=== PATIENT | male | born 2000 | race African-American/Black ===

== ENCOUNTER 2020-04-04 05:16 | Inpatient (IN) | payer OTHER ==
[~2020-04-04] VITALS: Ht 165.1 cm; Wt 65.8 kg
[2020-04-04 06:56] LABS: HEMATOCRIT 45.4 % (42.0-52.0); HEMOGLOBIN 15.2 g/dl (13.5-17.5); MEAN CORPUSCULAR HEMOGLOBIN 29.5 pg (27.0-33.0); MEAN CORPUSCULAR HGB CONC 33.5 g/dl (32.0-36.5); MEAN CORPUSCULAR VOLUME 88.2 fl (80.0-96.0); PLATELET COUNT, AUTOMATED 218 10^3/uL (150-450); RED BLOOD COUNT 5.15 10^6/uL (4.30-6.10); WHITE BLOOD COUNT 7.4 10^3/uL (4.0-10.0)
[2020-04-04 07:19] LABS: AMPHETAMINES LEVEL URINE NEGATIVE (NEGATIVE); BARBITURATES URINE NEGATIVE (NEGATIVE); BENZODIAZEPINES URINE NEGATIVE (NEGATIVE); CANNABINOIDS URINE NEGATIVE (NEGATIVE); COCAINE METABOLITE URINE NEGATIVE (NEGATIVE); METHADONE URINE NEGATIVE (NEGATIVE); OPIATES URINE NEGATIVE (NEGATIVE); PHENCYCLIDINE URINE NEGATIVE (NEGATIVE)
[2020-04-04 07:32] LABS: ACETAMINOPHEN LEVEL < 2.0 UG/ML (10.0-30.0); ALBUMIN 3.9 GM/DL (3.2-5.2); ALT/SGPT 20 U/L (12-78); BILIRUBIN,DIRECT 0.1 MG/DL (0.0-0.2); BILIRUBIN,TOTAL 0.4 MG/DL (0.2-1.0); BLOOD UREA NITROGEN 18 MG/DL (7-18); CALCIUM LEVEL 8.9 MG/DL (8.5-10.1); CARBON DIOXIDE LEVEL 27 MEQ/L (21-32); CHLORIDE LEVEL 109 MEQ/L (98-107); CREATININE FOR GFR 1.29 MG/DL (0.70-1.30); GLOMERULAR FILTRATION RATE > 60.0 (>60); GLUCOSE, FASTING 82 MG/DL (70-100); POTASSIUM SERUM 4.3 MEQ/L (3.5-5.1); SALICYLATE LEVEL < 1.7 MG/DL (5.0-30.0); SODIUM LEVEL 143 MEQ/L (136-145); TOTAL PROTEIN 6.9 GM/DL (6.4-8.2)
[2020-04-04 07:33] LABS: ETHYL ALCOHOL (ETHANOL) < 0.003 % (0.000-0.010)
[2020-04-04] MEDS ORDERED: ACETAMINOPHEN TAB 650MG DOSE (2X325MG) PO PRN (09:00)
[2020-04-04] MEDS ORDERED: traZODone 50 MG TAB PO PRN (09:00)
[2020-04-04] MEDS ORDERED: LORazepam 1 MG TAB PO PRN (09:00)
[2020-04-04] MEDS ORDERED: MOM 30ML SUSPENSION UDC PO PRN (09:00)
[2020-04-04] MEDS ORDERED: MAALOX 30 ML SUSP *UDC PO PRN (09:00)
[2020-04-04 10:51] VITALS: BP 139/97
[2020-04-04 16:47] VITALS: BP 126/58
[2020-04-05 06:30] VITALS: BP 112/53
--- NOTE | 2020-04-05 09:42 | MHHPE ---
DATE OF ADMISSION: 04/04/2020 VITAL SIGNS: Blood pressure 106/68, pulse 66, temperature 98.7. This is a video assessment, it is being done because of the virus pandemic. He is aware of this. He seemed pleasant to staff. CHIEF COMPLAINT: He feels stressed. SUBJECTIVE: He is 20 years old, he is single, he is active duty, has a girlfriend called Jess, they have been together for about a year. He has no children. He was brought into the hospital yesterday after girlfriend got concerned regarding his ability to maintain his safety. He had received word from his mother that she was going to operated upon, heart surgery coming up. Said this was quite unexpected. He felt quit stressed when he got the news. Says his the night his girlfriend was in the room, she is aware, essentially somewhat violent and then overly distressed and he asked her to leave him alone for a little while, says he wants to gather himself. He says indicated that he "could not take it any more" and says this was in context in dealing with his brother, who is recovering from being shot several times, this is was all in [place], [place]. Brother is still in hospital. The patient had gone there in November, soon after the shooting, but because of the investigation and the virus and restrictions, was not allowed to see him. Says that an ongoing matter of the investigation going on, has been quite worried about all of those aspects, and in addition to that, when he found out about his mother and she told him about her upcoming surgery, felt distressed by it. Says he went to his room, which is near his girlfriend's room, they live in the [facility] and girlfriend was worried. He then returned to the room and wanted to collect his phone, but by then she had called the police, they came, they informed him that they were going to take him to the hospital. He says he told them that he did not think he needed to go, but they had to. Says meanwhile, his 1st sergeant, his first name is Giovanni, was also aware and persuaded him to go. He says he and his 1st sergeant are quite close to each other and they get along. Says he somewhat remembers the journey to the hospital, says he was quiet and did not say much and that was maintained while he was in the emergency room, said hardly anything, but was thinking about these matters and he felt he just needed time. Says he had no desires of harming himself and that remains the case. Says he feels better now particularly after he slept earlier today. Says he realizes he needs at this time to source out all these matters. Has been in touch with his girlfriend and his sergeant, says that has gone well. Has been in touch with his mother as well. Says he has generally been doing relatively well emotionally, though stressed over the last few weeks, but moods overall have been good, as has sleep and appetite. Says thinks about his brother, but that he has been preoccupied by those worries or thoughts. REVIEW OF PSYCHIATRIC SYSTEMS: There is no history consistent with hypomania, nor otilia, no obsessions, no compulsions, is not chronically anxious, had no symptoms indicative of posttraumatic stress disorder. PAST PSYCHIATRIC HISTORY: None formally. FAMILY PSYCHIATRIC HISTORY: None that he is aware of. SUBSTANCE ABUSE HISTORY: None significantly. MEDICAL HISTORY: None significantly. SOCIAL HISTORY: He is the youngest of several children and he says he had brought up by his mother, step dad, says he is close to his mother, gets along with his stepfather. Denies any history of abuse, but suggests that it was tough growing up. Joined the soon after school. Says likes it and been enlisted recently and says eventually he wants to go for further studies, works as a tile mechanic helper. Says he and his girlfriend, Jess, have been together for about a year and they get along. She is supportive. She is also in the . Says finds support with his 1st sergeant and that in fact he has recently promoted as well. MENTAL STATUS EXAMINATION: He is neat, he is cooperative. No involuntary movements noted. He appears well nourished. He is coherent. He has a fairly broad effect. Denies any suicidal thoughts or intents. No homicidal ideas or intents. No evidence of any psychosis. Intellect average. Cognition grossly intact. Judgment and insight fair. INVESTIGATIONS: Complete blood count essentially within normal limits. Metabolic profile: Within normal limits. Urine toxicology essentially negative. ASSESSMENT: 1. Acute stress disorder. 2. Concerns regarding mother's upcoming surgery. 3. Worries about brother. 4. Has been stressed, distressed receiving news about his other health. He says she has told him that the surgery is upcoming. Indicates it was unexpected, the news, and that distressed him further. Says he needed time to process this and to gather himself, he feels this was misinterpreted by his girlfriend and that mistaken implying that he wants to kill himself, but that he did not, has no such intentions. Feels better now. PLANS: Admitted to the inpatient psychiatric unit. The patient relevant precautions. We will look in obtaining collateral information. He will be involved in individual group and Milieu therapy. I do not see a need for his being on any scheduled psychotropics. He received a medicine consult as indicated. He will be discharged with followup once he is stable and I anticipate a short stay. Further recommendations will be made depending on clinical picture. Assessment took 50 minutes.
[2020-04-05 16:19] VITALS: BP 135/62
[2020-04-06 06:10] VITALS: BP 135/65
--- NOTE | 2020-04-06 06:45 | HPE ---
DATE OF ADMISSION: 04/04/2020 Please refer to the psychiatric history and evaluation for further details on this admission. This examination and history is intended for medical issues which may need treatment, followup or consultation on this 20-year-old male. PRIMARY CARE PROVIDER: [facility]. ALLERGIES: No known allergies. 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 ETOH - he states none. Smokes - none. Recreational drug use - none. PAST MEDICAL HISTORY: Negative. PAST SURGICAL HISTORY: Negative. HOME MEDICATIONS: None. FAMILY HISTORY: He has a brother who was recently shot several times and is in the hospital in [place]. He has a mother with heart disease who had recent heart surgery. Father's health is unknown, he when patient was a child. LABORATORY STUDIES: CBC was normal. Sodium 143. Potassium 4.3. Chloride 109. CO2 27. Anion gap 7. BUN 18. Creatinine 1.29. Fasting blood sugar 82. TSH 1.22. Urine toxicology was negative. REVIEW OF SYSTEMS: 10 systems review was done and was unremarkable. The patient had no complaints. PHYSICAL EXAMINATION: 20-year-old cooperative black male in no acute distress. Height 65 inches. Weight 68.18 kg. Body mass index (BMI) 25.0. Temperature 97.2. Pulse 68. Respirations 16. Blood pressure 165/62. O2 sat is 100% on room air. The patient is alert and oriented times three. Pupils equal and react to light. Extraocular movements intact. Cornea and sclera clear. Conjunctiva normal. No facial asymmetry. Pharynx, tongue and gums pink and moist. Tongue is midline. Neck is supple, without lymphadenopathy. No thyromegaly. No goiter. Carotids 2+, without bruit. Chest clear to auscultation, without wheeze or retraction. Heart is regular. Abdomen benign. Bowel sounds positive. Genitourinary ()/Rectal: Not done. Extremities show equal strength and full range of motion. No cyanosis, clubbing or edema. Peripheral pulses equal and palpable bilaterally. Skin is warm and dry. IMPRESSION AND PLAN: 1. Psychiatric. Plan per psychiatry. 2. No acute medical issues.
--- NOTE | 2020-04-06 08:27 | MHIPN ---
DATE: 04/05/2020 VITAL SIGNS: Blood pressure 125/62, pulse 69, temperature 97.2. He is seen in the presence of staff, this is a video assessment, done because of the virus pandemic. CHIEF COMPLAINT: Feels better. SUBJECTIVE: Seen for followup. Indicates he has been feeling better, says he rested last night. Appetite has been okay. Says he spoke with his girlfriend, as well as his mother yesterday. He has also spoken with his First Sergeant. He feels supported. MENTAL STATUS EXAMINATION: Neat. Cooperative. No agitation. No psychomotor retardation. Coherent. Affect fairly broad. No evidence of any thoughts of harming himself or anyone else. He denies any suicidal thoughts or intents. No evidence of psychosis. Cognition grossly intact. Judgment and insight improved. ASSESSMENT: Acute stress disorder. Feels better, less stress, more confident, less anxious. PLAN: Suggest continuing current care, observations, encouraging participation in activities in the unit. No firm indication for using an antidepressant, or any psychotropic on a scheduled basis. Further recommendations will be made depending on the clinical picture, and I would anticipate a discharge within the next 48 hours or so. He will be seeing the assigned psychiatrist tomorrow.
== END 2020-04-06 15:20 | disposition home or self-care (01) | DRG 880 ==
LOC: M ED 05:16 → M ED INP 08:56 → M PSY 10:43
PROVIDERS: ADMIT Psychiatry & Neurology Psychiatry; ATTEND Psychiatry & Neurology Addiction Medicine
DX: F43.0 Acute stress reaction (principal)